=== PATIENT | male | born 2000 | race Caucasian/White ===

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

== ENCOUNTER 2021-01-12 12:15 | Emergency (ER) | payer SELFPAY ==
[~2021-01-12] VITALS: Ht 175.2 cm; Wt 113.4 kg
[~2021-01-12 12:15] MED LIST changes: +AMOXICILLIN500 M2 PO; +ZYRTEC10 M3 PO
[2021-01-12 12:26] VITALS: BP 136/75
[2021-01-12] MEDS ORDERED: MOBIC7.5 MG PO (14:04)
== END 2021-01-12 14:01 | disposition home or self-care (01) ==
LOC: ED 12:15
DX: R68.84 Jaw pain (principal); F17.200 Nicotine dependence, unspecified, uncomplicated; Z88.1 Allergy status to other antibiotic agents; Z88.8 Allergy status to other drugs, medicaments and biological substances